=== PATIENT | female | born 1990 | race American Indian/Alaskan Native ===

== ENCOUNTER 2019-01-08 17:50 | Emergency (ER) | payer MEDICAID ==
[2019-01-08 18:50] VITALS: BP 180/96
--- NOTE | 2019-01-08 18:50 | Emergency Department Report ---
Chief Complaint: Dyspnea/Respdistress Stated Complaint: C SECTION PAIN/ CHEST/BACK PAIN Time Seen by Provider: 01/08/19 18:44 - HPI History of Present Illness: presents for a cough that began a month ago no fever (+) chest congestion (+) chest discomfort with coughing no V/D pt states she has been taking cold/flu states she also has a SCHAFER no vision problems, no numbness, no weakness had a on 12/29/18 + marijuana use pt states she had a high blood pressure reading once during her MSE screening note: Focused history and physical exam performed. Due to findings the following was ordered: UA, labs, CXR ED Disposition for MSE Condition: Stable
--- NOTE | 2019-01-08 19:44 | XRay Report ---
PROCEDURE: XR CHEST ROUTINE 2V HISTORY: cough FINDINGS: Frontal and lateral views of the chest were acquired. The heart is normal in size. There is prominence of perihilar markings which could represent viral pneumonitis or possibly bronchitis. No consolidative infiltrate is seen. Inversion: Prominent perihilar markings, which could represent viral pneumonitis or bronchitis This document is electronically signed by David Dalal MD., January 08 2019 07:42:57 PM ET
[2019-01-08 20:13] LABS: Hemoglobin 11.7 gm/dl (10.1-14.3); Red Blood Count 4.32 M/mm3 (3.65-5.03)
[2019-01-08 20:14] LABS: Basophils # (Auto) 0.1 K/mm3 (0.0-0.1); Basophils % (Auto) 0.9 % (0.0-1.8); Eosinophils # (Auto) 0.1 K/mm3 (0.0-0.4); Eosinophils % (Auto) 1.3 % (0.0-4.3); Hematocrit 36.3 % (30.3-42.9); Lymphocytes # (Auto) 1.2 K/mm3 (1.2-5.4); Lymphocytes % (Auto) 14.3 % (13.4-35.0); Mean Corpuscular HGB Conc 32 % (30-34); Mean Corpuscular Volume 84 fl (79-97); Monocytes # (Auto) 0.4 K/mm3 (0.0-0.8); Monocytes % (Auto) 4.3 % (0.0-7.3); Platelet Count 367 K/mm3 (140-440)
[2019-01-08 21:32] LABS: Alanine Aminotransferase 18 units/L (7-56); Albumin 3.2 g/dL (3.9-5); BUN/Creatinine Ratio 7; Blood Urea Nitrogen 8 mg/dL (7-17); Calcium 8.7 mg/dL (8.4-10.2); Hemolysis Index 3
== END 2019-01-08 23:10 | disposition left against medical advice (07) ==
LOC: ED 17:50
DX: R07.89 Other chest pain (principal); M54.9 Dorsalgia, unspecified; Z53.21 Procedure and treatment not carried out due to patient leaving prior to being seen by health care provider
CPT/HCPCS: 36415; 71046; 80053; 85025

== ENCOUNTER 2019-07-07 23:31 | Emergency (ER) | payer SELFPAY ==
[2019-07-07 23:41] VITALS: BP 142/84
[2019-07-08 00:39] LABS: Bilirubin,Urine NEG (Negative); Blood,Urine LG (Negative); Color,Urine Red (Yellow); Urobilinogen,Urine < 2.0 mg/dL (<2.0)
[2019-07-08 00:40] LABS: RBC,Urine > 182.0 /HPF (0.0-6.0); WBC,Urine > 182.0 /HPF (0.0-6.0)
[2019-07-08 01:01] LABS: Basophils % (Auto) 0.3 % (0.0-1.8); Eosinophils # (Auto) 0.2 K/mm3 (0.0-0.4); Eosinophils % (Auto) 2.9 % (0.0-4.3); Hematocrit 36.5 % (30.3-42.9); Hemoglobin 11.7 gm/dl (10.1-14.3); Lymphocytes # (Auto) 1.5 K/mm3 (1.2-5.4); Lymphocytes % (Auto) 22.1 % (13.4-35.0); Mean Corpuscular HGB Conc 32 % (30-34); Mean Corpuscular Volume 84 fl (79-97); Monocytes # (Auto) 0.4 K/mm3 (0.0-0.8); Monocytes % (Auto) 5.8 % (0.0-7.3); Platelet Count 266 K/mm3 (140-440); Red Blood Count 4.34 M/mm3 (3.65-5.03); Red Cell Distribution Width 16.2 % (13.2-15.2)
--- NOTE | 2019-07-08 01:46 | Emergency Department Report ---
ED HPI - General Chief complaint: Abdominal Pain Stated complaint: VAGINAL BLEEDING/10 WKS PREG Time Seen by Provider: 07/08/19 01:11 Source: patient Mode of arrival: Ambulatory Limitations: No Limitations - History of Present Illness Initial comments: 29-year-old female, , presents to ED with vaginal bleeding. Patient states she has had 4 positive home tests. She is approximately 8 weeks . Patient states she was at work and began to experience vaginal bleeding and light lower abdominal cramping. She denies any large clots or passage of tissue. MD Complaint: vaginal bleeding -: This evening Severity: moderate Quality: cramping Consistency: constant Improves with: none Worsens with: none Associated symptoms: vaginal bleeding, abdominal pain Vaginal bleeding: other (moderate) :: Yes Number of weeks : 8 Pre-cl care: none - Related Data : 4 Para: 3 Previous Rx's Medication Instructions Recorded Last Taken Type Ibuprofen [Motrin] 800 mg PO Q8HR PRN #30 tablet 10/30/16 Unknown Rx Oxycodone HCl/Acetaminophen 1 each PO Q6HR PRN #20 tablet 10/30/16 Unknown Rx [Percocet 10/325 mg] amLODIPine [Norvasc] 5 mg PO DAILY #30 tab 10/30/16 Unknown Rx cephALEXin [Keflex] 500 mg PO Q12HR 3 Days #6 cap 07/08/19 Unknown Rx Allergies Allergy/AdvReac Type Severity Reaction Status Date / Time No Known Allergies Allergy Verified 10/30/16 20:35 ED Review of Systems ROS: Stated complaint: VAGINAL BLEEDING/10 WKS PREG Other details as noted in HPI Comment: All other systems reviewed and negative Gastrointestinal: abdominal pain Genitourinary: other (reports vaginal bleeding) ED Past Medical Hx - Past Medical History Previous Medical History?: Yes Hx Hypertension: Yes Hx Diabetes: No Hx Deep Vein Thrombosis: No Hx Renal Disease: No Hx Sickle Cell Disease: No Hx Seizures: No Hx Asthma: No Hx HIV: No Additional medical history: Obesity. Anemia - Surgical History Additional Surgical History: X 3 - Social History Smoking Status: Never Smoker Substance Use Type: Marijuana - Medications Home Medications: Home Medications Medication Instructions Recorded Confirmed Last Taken Type Ibuprofen [Motrin] 800 mg PO Q8HR PRN #30 tablet 10/30/16 Unknown Rx Oxycodone HCl/Acetaminophen 1 each PO Q6HR PRN #20 tablet 10/30/16 Unknown Rx [Percocet 10/325 mg] amLODIPine [Norvasc] 5 mg PO DAILY #30 tab 10/30/16 Unknown Rx cephALEXin [Keflex] 500 mg PO Q12HR 3 Days #6 cap 07/08/19 Unknown Rx ED Physical Exam - General Limitations: No Limitations General appearance: alert, in no apparent distress - Head Head exam: Present: atraumatic, normocephalic - Eye Eye exam: Present: normal appearance - ENT ENT exam: Present: mucous membranes moist - Neck Neck exam: Present: normal inspection - Respiratory Respiratory exam: Present: normal lung sounds bilaterally. Absent: respiratory distress - Cardiovascular Cardiovascular Exam: Present: regular rate, normal rhythm - GI/Abdominal GI/Abdominal exam: Present: soft. Absent: distended, tenderness - Extremities Exam Extremities exam: Present: normal inspection - Neurological Exam Neurological exam: Present: alert, oriented X3 - Psychiatric Psychiatric exam: Present: normal affect, normal mood - Skin Skin exam: Present: warm, dry, intact, normal color ED Course Vital Signs 07/07/19 23:38 Temperature 98.6 F Pulse Rate 93 H Respiratory 20 Rate Blood Pressure 142/84 O2 Sat by Pulse 98 Oximetry ED Medical Decision Making - Lab Data Result diagrams: 07/08/19 00:28 - Radiology Data Radiology results: report reviewed, image reviewed - Medical Decision Making Threatened . Light vaginal bleeding, mild cramping. Pt nontoxic appearing. Pt advised to f/u with OB. UA shows mild UTI, antibiotic given. Return precautions given. - Differential Diagnosis ectopic, IUP, miscarriage Critical care attestation.: If time is entered above; I have spent that time in minutes in the direct care of this critically ill patient, excluding procedure time. ED Disposition Clinical Impression: Threatened miscarriage, UTI (urinary tract infection), 10 weeks gestation of Disposition: DC- TO HOME OR SELFCARE Is pt being admited?: No Condition: Stable Instructions: Threatened Miscarriage (ED) Prescriptions: cephALEXin [Keflex] 500 mg PO Q12HR 3 Days #6 cap Referrals: [facility] [Provider Group] - 3-5 Days [facility] [Provider Group] - 3-5 Days
--- NOTE | 2019-07-08 01:57 | Ultrasound Report ---
Early obstetrical ultrasound INDICATION: Pelvic cramping, vaginal bleeding, COMPARISON: None TECHNIQUE: Transabdominal and endovaginal Uterus measures 14.6 cm in length. Fundal intrauterine is noted with pole and yolk sa c seen. Estimated gestational age is 10 weeks 2 days by crown-rump length. Cardiac activity was docum ented with heart rate of 166 bpm. There appears to be a moderate crescentic implantational blee d measuring 4.5 cm in length with a thickness of 1.7 cm. Right ovary measures 4.1 cm in length and shows no abnormalities. Left ovary measures 3.7 cm in lengt h and shows a 1.9 cm mildly complex cyst. Only minimal free fluid is seen. IMPRESSION: Early intrauterine is seen with no obvious abnormalities noted. An adjace nt implantation site bleed is seen. Follow-up is recommended. Signer Name: Presley Easton MD Signed: 07/08/2019 1:52 AM Workstation Name: [id number]
== END 2019-07-08 02:25 | disposition home or self-care (01) ==
LOC: ED 23:31
DX: O20.0 Threatened abortion (principal); O23.41 Unspecified infection of urinary tract in pregnancy, first trimester; O16.1 Unspecified maternal hypertension, first trimester; Z3A.08 8 weeks gestation of pregnancy; Z79.899 Other long term (current) drug therapy
CPT/HCPCS: 36415; 76801; 76817; 81001; 84702; 85025; 86900; 86901; 99284